=== PATIENT | male | born 1975 | race American Indian/Alaskan Native ===

== ENCOUNTER 2017-02-21 18:23 | Emergency (ER) | payer SELFPAY ==
[2017-02-21] MEDS ORDERED: FLEXERIL PO ONE (22:28)
[2017-02-21] MEDS ORDERED: TORADOL IM ONE (22:28)
--- NOTE | 2017-02-21 22:34 | Emergency Department Report ---
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 with approx 2 foot drop, pt now complains of low back pain left lateral radiating to LLE pain is described as 6/10 aching burning pain is exacerbated by movement pain is relieved by rest and position there is no weakness no numbness no tingling, no loss or decrease in bowel or bladder function, Complaint: back pain Onset/Timin -: hour(s) Similar Symptoms Previously: No Place: work Radiation: left leg Severity: moderate Severity scale (0 -10): 6 Quality: burning, aching Consistency: constant Improves With: other (rest position) Worsens With: movement, walking Context: turning/twisting, fall Associated Symptoms: difficulty walking. denies: confusion, weakness, chest pain, numbness, cough, difficulty urinating, diaphoresis, incontinence, fever/ chills, constipation, headaches, abdominal pain, loss of appetite, malaise, nausea/vomiting, rash, seizure, shortness of breath, syncope, other - Related Data Previous Rx's Medication Instructions Recorded Last Taken Type Capsaicin 42.5 gm TP BID PRN #1 tube 02/21/17 Unknown Rx Cyclobenzaprine [Flexeril] 10 mg PO TID PRN #30 tablet 02/21/17 Unknown Rx Naproxen 500 mg PO BID PRN #60 tablet 02/21/17 Unknown Rx Allergies Allergy/AdvReac Type Severity Reaction Status Date / Time peach Allergy Itching Verified 02/21/17 18:27 plum Allergy Itching Verified 02/21/17 18:27 ED Review of Systems ROS: Stated complaint: LEFT BACK/HIP/KNEE/LEG PAIN Other details as noted in HPI Constitutional: denies: chills, fever Eyes: denies: eye pain, eye discharge, vision change ENT: denies: ear pain, throat pain Respiratory: denies: cough, shortness of breath, wheezing Cardiovascular: denies: chest pain, palpitations Endocrine: no symptoms reported Gastrointestinal: denies: abdominal pain, nausea, diarrhea Genitourinary: denies: urgency, dysuria Musculoskeletal: back pain, myalgia. denies: joint swelling, arthralgia Skin: denies: rash, lesions Neurological: denies: headache, weakness, numbness, paresthesias, confusion, abnormal gait, vertigo Psychiatric: denies: anxiety, depression Hematological/Lymphatic: denies: easy bleeding, easy bruising ED Past Medical Hx - Past Medical History Previous Medical History?: Yes Hx Asthma: Yes (pediatric) - Surgical History Past Surgical History?: No - Social History Smoking Status: Current Every Day Smoker Substance Use Type: Alcohol - Medications Home Medications: Home Medications Medication Instructions Recorded Confirmed Last Taken Type Capsaicin 42.5 gm TP BID PRN #1 tube 02/21/17 Unknown Rx Cyclobenzaprine [Flexeril] 10 mg PO TID PRN #30 tablet 02/21/17 Unknown Rx Naproxen 500 mg PO BID PRN #60 tablet 02/21/17 Unknown Rx ED Physical Exam - General Limitations: No Limitations General appearance: alert, in no apparent distress - Head Head exam: Present: atraumatic, normocephalic - Eye Eye exam: Present: normal appearance, PERRL, EOMI Pupils: Present: normal accommodation - ENT ENT exam: Present: mucous membranes moist, TM's normal bilaterally, normal external ear exam - Neck Neck exam: Present: normal inspection, full ROM. Absent: tenderness, lymphadenopathy, thyromegaly - Respiratory Respiratory exam: Present: normal lung sounds bilaterally. Absent: respiratory distress, wheezes, chest wall tenderness - Cardiovascular Cardiovascular Exam: Present: regular rate, normal rhythm, normal heart sounds. Absent: systolic murmur, diastolic murmur, rubs, gallop - GI/Abdominal GI/Abdominal exam: Present: soft, normal bowel sounds. Absent: distended, tenderness, guarding, rebound, rigid, organomegaly, mass, bruit, pulsatile mass , hernia - Rectal Rectal exam: Present: deferred - Extremities Exam Extremities exam: Present: normal inspection, full ROM, normal capillary refill. Absent: tenderness, pedal edema, joint swelling, calf tenderness - Back Exam Back exam: Present: normal inspection, tenderness (left lateral lumbar and sciatic region pain to deep palpation there is no posterior vertebral point tenderness mild parspinus muscle pain with deep palpation, pos straight leg left at 60 degree strength 5/5 there is no numbness no tingling no paralysis ) , muscle spasm, paraspinal tenderness. 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 with approx 2 foot drop, pt now complains of low back pain left lateral radiating to LLE pain is described as 6/10 aching burning pain is exacerbated by movement pain is relieved by rest and position there is no weakness no numbness no tingling, no loss or decrease in bowel or bladder function, exam: pt is a/o x 3 appears well non toxic, well hydrated well nourish, back : no posterior vertebral point tenderness mild paraspinus muscle tenderness to deep palpation pos straight let raise left pos sciatic notch pain to deep palpation no back deformity no swelling no ecchymosis no stepoff no crepitus, pt is ambulatory transfers self from stretcher to wheel chair with minimal pain . pain level is 7/10 at this time. plan: toradol IM , po flexeril 10 mg po , lumbar xray , and reasess Reassessment: Pain is now: 2/10 Lumbar series xray: plan: nsaids, muscle relaxant , capsaicin cream , moist heat therapy , back exercises, pt will follow up primary doctor in [address] Renteria, [phone] pt verbalized agreement and understanding with discharge plan. Critical care attestation.: If time is entered above; I have spent that time in minutes in the direct care of this critically ill patient, excluding procedure time. ED Disposition Clinical Impression: Fall Qualifiers: Encounter type: initial encounter Qualified Code(s): W19.XXXA - Unspecified fall, initial encounter Low back strain Qualifiers: Encounter type: initial encounter Qualified Code(s): S39.012A - Strain of muscle, fascia and tendon of lower back, initial encounter Disposition: TO HOME OR SELFCARE Is pt being admited?: No Does the pt Need Aspirin: No Condition: Good Instructions: Low Back Strain (ED), Core Strengthening Exercises (GEN) Prescriptions: Capsaicin 42.5 gm TP BID PRN #1 tube PRN Reason: Pain Cyclobenzaprine [Flexeril] 10 mg PO TID PRN #30 tablet PRN Reason: Muscle Spasm Naproxen 500 mg PO BID PRN #60 tablet PRN Reason: Pain Referrals: PRIMARY CARE, [Primary Care Provider] - 3-5 Days JAYRO RENTERIA MD [Staff Physician] - 3-5 Days Forms: Work/School Release Form(ED)
--- NOTE | 2017-02-22 02:04 | XRay Report ---
FINAL REPORT PROCEDURE: XR SPINE LUMBOSACRAL 2-3V TECHNIQUE: Lumbar spine radiographs, including AP, lateral, and lumbosacral spot views. CPT 12362 HISTORY: lumbar pain s/p fall COMPARISON: No prior studies are available for comparison. FINDINGS: Alignment: Normal. Vertebral body heights/Disk spaces: Normal. Fracture(s): None. Facets: Normal. Bone mineralization: Normal. IMPRESSION: Normal Examination.
[2017-02-22 02:27] VITALS: BP 156/85
== END 2017-02-22 02:27 | disposition home or self-care (01) ==
LOC: ED 18:23
DX: S39.012A Strain of muscle, fascia and tendon of lower back, initial encounter (principal); J45.909 Unspecified asthma, uncomplicated; F17.210 Nicotine dependence, cigarettes, uncomplicated; Z91.018 Allergy to other foods; W18.30XA Fall on same level, unspecified, initial encounter; Y93.89 Activity, other specified; Y92.89 Other specified places as the place of occurrence of the external cause; Y99.8 Other external cause status
CPT/HCPCS: 72100; 96372; 99283; J1885